=== PATIENT | female | born 2000 | race Caucasian/White ===

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

== ENCOUNTER 2024-02-25 07:59 | Emergency (ER) | payer OTHER, SELFPAY ==
[2024-02-25 08:06] VITALS: BP 120/82; PULSE 110; RESP 20; TEMP 36.3; O2SAT 100
[2024-02-25 08:19] VITALS: BP 118/92; PULSE 91; RESP 16; TEMP 36.4; O2SAT 97
[2024-02-25 08:31] LABS: Basophils Absolute Auto 0.1 K/mm3 (0.0-0.1); Basophils Percent Auto 0.4 % (0.2-1.2); Hematocrit 50.1 % (37.0-47.0); Hemoglobin 16.5 g/dL (12.0-15.0); Immature Granulocyte Absolute 0.04 K/mm3 (0.00-0.031); Immature Granulocyte Percent A 0.3 % (0-0.5); Lymphocytes Absolute Auto 1.39 K/mm3 (0.9-3.2); Lymphocytes Percent Auto 10.9 % (18.3-44.2); Mean Corpuscular HGB Conc 32.9 g/dl (32-36); Mean Corpuscular Hemoglobin 28.6 pg (26-34); Mean Corpuscular Volume 86.8 fl (80-100); Mean Platelet Volume 12.7 fl (7.4-10.4); Monocytes Absolute Auto 1.3 K/mm3 (0.1-0.6); Monocytes Percent Auto 10.3 % (2.6-8.5); Neutrophils Percent Auto 78.1 % (45.5-73.1); Platelet Count Result 243 k/mm3 (150-375); Red Blood Count 5.77 M/mm3 (4.2-5.4); Red Cell Distribution Width 12.6 % (11.5-14.5); White Blood Count 12.7 K/mm3 (4.5-10.0)
[2024-02-25] MEDS: ONDANSETRON INJ 4 MG/2 ML VIAL IV PUSH (08:35)
[2024-02-25] MEDS: SODIUM CHLORIDE 0.9% IV 1,000 ML 999 ML IV CONT ×3 (08:35→10:29)
[2024-02-25 08:46] LABS: Alanine Aminotransferase 47 U/L (6-35); Albumin Level 5.6 g/dL (3.5-5.1); Alkaline Phosphatase 137 U/L (38-126); Anion Gap 19 mmol/L (4-12); Aspartate Amino Transferase 47 U/L (14-36); Bilirubin,Total 0.7 mg/dL (0.2-1.3); Blood Urea Nitrogen 52 mg/dL (7-17); Calcium 10.4 mg/dL (8.4-10.2); Carbon Dioxide 22 mmol/L (22-30); Chloride 97 mmol/L (98-107); Estimated CRCL calculation 31 ml/min; Estimated Glomerular Filt Rate 44; Glucose 98 mg/dL (65-110); Lipase 54 U/L (23-300); Potassium 4.3 mmol/L (3.4-5.0); Sodium 138 mmol/L (137-145)
--- NOTE | 2024-02-25 08:57 | ED.GENADULT ---
HPI - General Adult General Chief complaint: Nausea/Vomiting/Diarrhea Stated complaint: n/v/d Time Seen by Provider: 02/25/24 08:01 History of Present Illness HPI narrative: 23-year-old female presenting to the emergency department for evaluation of persistent nausea and vomiting with diarrhea since Monday. Patient states that she does not frequently have the symptoms. Patient denies any abdominal pain currently but does report some abdominal cramping prior to emesis. Patient states she has been unable to keep down any fluids. Related Data Home Medications Medication Instructions Recorded Confirmed ibuprofen 200 mg tablet 200 mg PO Q6H PRN 02/07/24 02/07/24 Allergies Allergy/AdvReac Type Severity Reaction Status Date / Time latex Allergy Unknown Rash Verified 02/26/24 14:03 Review of Systems Review of Systems: All systems reviewed & are unremarkable except as noted in HPI and below PMFSH Past Medical History Medical History (Updated 02/26/24 @ 15:05 by Michelle Stover) Cholecystectomy planned Pre-employment health screening examination Thickening of wall of gallbladder Family History Family History Father Hypertension Diabetes mellitus Hyperlipidemia Depression Grandparent Hypertension Family history of lung cancer Family history of coronary artery disease Family history of malignant neoplasm of kidney Family history of malignant neoplasm of ovary Diabetes mellitus Mother No problems noted. Sibling No problems noted. Social History Social History Smoking status: Never smoker Alcohol intake: never Substance use: never Lack of Transportation: No Lack of Food: Never True Current Housing: I Have Housing Concerned About Future Housing: No Difficulty Paying Gas/Electric Bills: No Difficulty Paying for Meds: No Currently Unemployed: No Education: High School Diploma/GED Difficulty w/ Childcare or Family Care: No Living arrangements: with family Occupation/Education: occupation Additional occupation/education comments: [employer] Gender identity (if verbalized by the patient): Female Exam Narrative: APPEARANCE: Well appearing, no pain, no distress, well-nourished. HEAD: normocephalic, atraumatic. EYES: PERRLA/EOMI, conjunctivae clear. NOSE: Normal no drainage EARS:TMS clear with good light reflex. THROAT: Pharynx clear, no exudate. NECK: Supple. No adenopathy, no masses. RESPIRATORY: Airway patent, respirations nonlabored. Clear to auscultation bilaterally, no rales, rhonchi, wheezing. CARDIOVASCULAR: Regular rate and rhythm without murmurs rubs or gallops. ABDOMINAL: Soft, nontender, nondistended, normal bowel sounds MUSCULOSKELETAL: Moves all extremities. Strength/ROM intact, No edema, No calf tenderness. NEURO: Alert. Cranial nerves II through XII intact. grossly intact SKIN: Warm, dry. Normal Color Course Vital Signs Vital signs: Vital Signs Temperature 97.3 F L 02/25/24 08:06 Pulse Rate 110 H 02/25/24 08:06 Respiratory Rate 20 02/25/24 08:06 Blood Pressure 120/82 02/25/24 08:06 Pulse Oximetry 100 02/25/24 08:06 Temperature 97.6 F 02/25/24 08:19 Pulse Rate 87 02/25/24 12:07 Respiratory Rate 17 02/25/24 12:07 Blood Pressure 104/69 02/25/24 12:07 Pulse Oximetry 100 02/25/24 12:07 Oxygen Delivery Room Air 02/25/24 08:19 Medical Decision Making MDM Narrative Medical decision making narrative: 23-year-old female presenting to the emergency department for evaluation of persistent nausea vomiting and diarrhea. Patient is afebrile but does have a leukocytosis of 12.7 and a hemoglobin of 16.5, thought to be due to hemoconcentration. Patient also has a significantly elevated BUN and creatinine compared to her baseline. Mild elevation AST and ALT alk-phos with no elevation in lipase. Patient abd
[2024-02-25 09:01] LABS: Appearance Urine Cloudy (Clear); Bacteria Urine 1+ /hpf; Bilirubin Urine Negative (Negative); Blood Urine 1+ (Negative); Color Urine Yellow (Yellow); Glucose Urine UA Negative (Negative); Granular Casts Urine Present /lpf; Hyaline Casts Urine Present /lpf; Ketones Urine 1+ mg/dL (Negative); Leukocyte Esterase Ur Negative LEU/UL (Negative); Mucus Urine Present /lpf; Nitrate Urine Negative (Negative); Non Pathogenic Casts >20; Protein Urine 2+ mg/dL (Negative); Specific Grav Ur 1.025 (1.001-1.035); Squamous Epithelial Cell Urine Moderate /hpf (Few); WBC Urine 0-5 /hpf (0-3)
[2024-02-25 09:02] LABS: Add Urine Microscopic? YES
[2024-02-25] MEDS: PANTOPRAZOLE SODIUM IV 40 MG VIAL IV PUSH (09:26)
[2024-02-25 09:30] LABS: Lactic Acid Reflex 1.9 mmol/L (0.7-2.0)
[2024-02-25 09:36] VITALS: BP 105/71; PULSE 98; RESP 16; O2SAT 100
[2024-02-25 11:11] LABS: Anion Gap 9 mmol/L (4-12); Blood Urea Nitrogen 40 mg/dL (7-17); Calcium 7.2 mg/dL (8.4-10.2); Carbon Dioxide 18 mmol/L (22-30); Chloride 108 mmol/L (98-107); Estimated CRCL calculation 50 ml/min; Estimated Glomerular Filt Rate > 60; Glucose 75 mg/dL (65-110); Sodium 135 mmol/L (137-145)
[2024-02-25 12:07] VITALS: BP 104/69; PULSE 87; RESP 17; O2SAT 100
== END 2024-02-25 12:23 | disposition home or self-care (01) ==
PROVIDERS: Emergency Provider Emergency Medicine; PCP Family Medicine
DX: N17.9 Acute kidney failure, unspecified (principal); R11.2 Nausea with vomiting, unspecified; E86.0 Dehydration
CPT/HCPCS: 36415; 80048; 80053; 81001; 83605; 83690; 85025; 96361; 96374; 96375; 99284; C9113; J2405; J7030

== ENCOUNTER 2024-07-26 09:01 | Outpatient (CLI) | payer OTHER, SELFPAY ==
[2024-07-26 09:31] LABS: Basophils Percent Auto 0.5 % (0.2-1.2); Eosinophils Absolute Auto 0.2 K/mm3 (0-0.3); Eosinophils Percent Auto 2.7 % (0-4.4); Hematocrit 38.1 % (37.0-47.0); Hemoglobin 12.7 g/dL (12.0-15.0); Immature Granulocyte Absolute 0.03 K/mm3 (0.00-0.031); Immature Granulocyte Percent A 0.4 % (0-0.5); Lymphocytes Absolute Auto 2.06 K/mm3 (0.9-3.2); Mean Corpuscular HGB Conc 33.3 g/dl (32-36); Mean Corpuscular Hemoglobin 30.1 pg (26-34); Mean Corpuscular Volume 90.3 fl (80-100); Mean Platelet Volume 12.6 fl (7.4-10.4); Monocytes Absolute Auto 0.5 K/mm3 (0.1-0.6); Monocytes Percent Auto 5.6 % (2.6-8.5); Neutrophils Absolute Auto 5.4 K/mm3 (1.3-6.7); Neutrophils Percent Auto 65.8 % (45.5-73.1); Platelet Count Result 195 k/mm3 (150-375); Red Blood Count 4.22 M/mm3 (4.2-5.4); Red Cell Distribution Width 12.8 % (11.5-14.5); White Blood Count 8.3 K/mm3 (4.5-10.0)
[2024-07-26 09:59] LABS: Alanine Aminotransferase 14 U/L (6-35); Albumin Level 4.6 g/dL (3.5-5.1); Alkaline Phosphatase 86 U/L (38-126); Anion Gap 10 mmol/L (4-12); Aspartate Amino Transferase 23 U/L (14-36); Bilirubin,Total 0.6 mg/dL (0.2-1.3); Blood Urea Nitrogen 9 mg/dL (7-17); Calcium 9.4 mg/dL (8.4-10.2); Carbon Dioxide 25 mmol/L (22-30); Chloride 101 mmol/L (98-107); Cholesterol 196 mg/dL (0-200); Estimated Glomerular Filt Rate > 60; Glucose 81 mg/dL (65-110); HDL Direct 59 mg/dL; Potassium 3.9 mmol/L (3.4-5.0); Sodium 136 mmol/L (137-145); Triglycerides 122 mg/dL (<150)
[2024-07-26 10:10] LABS: LDL Cholesterol Direct 115 mg/dL
[2024-07-26 10:30] LABS: Thyroid Stimulating Hormone 0.971 uIU/mL (0.465-4.680)
[2024-07-26 10:36] LABS: HIV 1/2 Ab P24 Ag Result Negative (Negative)
[2024-07-26 10:51] LABS: Rapid Plasma Reagin Non-Reactive (NonReactive)
[2024-07-26 11:11] LABS: Hepatitis B Surface Antigen Negative (Negative)
[2024-07-30 14:38] LABS: CMV IgG Antibody <0.60 U/mL; Varicella IgG Antibody 7.51 S/CO
== END 2024-07-26 09:02 | disposition home or self-care (01) ==
PROVIDERS: PCP Family Medicine; Referring Provider Nurse Practitioner Family; Visit Provider Student in an Organized Health Care Education/Training Program
DX: N94.89 Other specified conditions associated with female genital organs and menstrual cycle (principal); R74.8 Abnormal levels of other serum enzymes; Z13.29 Encounter for screening for other suspected endocrine disorder
CPT/HCPCS: 36415; 80053; 80061; 84443; 84702; 85025; 86592; 86644; 86703; 86747; 86762; 86787; 86850; 86900; 86901; 87086; 87088; 87340; G0432

== ENCOUNTER 2024-10-08 19:11 | Observation (INO) | payer OTHER, SELFPAY ==
[2024-10-08] VITALS (21 sets, daily range): BP systolic 108–121; BP diastolic 60–68; PULSE 88–119; TEMP 36.2; O2SAT 100; BMI 23.6
--- NOTE | 2024-10-08 19:44 | OBADM ---
This patient, Fina Steele, admitted to the OB room OB Post [facility] for observation. Patient/family oriented to hospital policies and general routines including ID bracelet, bed and alarms, visiting hours, pain management, procedures, bathroom and other care routines, personal items, smoking policy, room service/diet, and visiting hours. Patient/Family are encouraged to report perceived risks to care and to ask questions if they do not understand what they are told or what they should do.
[2024-10-08 19:55] LABS: Add Urine Microscopic? YES; Appearance Urine Clear (Clear); Bacteria Urine None Seen /hpf; Bilirubin Urine Negative (Negative); Blood Urine Negative (Negative); Color Urine Yellow (Yellow); Glucose Urine UA Negative (Negative); Ketones Urine Negative (Negative); Leukocyte Esterase Ur Trace LEU/UL (Negative); Nitrate Urine Negative (Negative); Non Pathogenic Casts 0-2; Protein Urine Negative (Negative); RBC Urine 0-2 /hpf (0-2); Specific Grav Ur 1.005 (1.001-1.035); Squamous Epithelial Cell Urine Few /hpf (Few); Urobilinogen Urine 0.2 mg/dL (<2.0); WBC Urine 0-5 /hpf (0-3); pH Urine 6.5 (5.0-9.0)
[2024-10-08] MEDS: TERBUTALINE SULFATE 1 MG/ML VIAL 0.25 MG SUB-Q (20:15)
--- NOTE | 2024-10-09 08:19 | PM.OBTRLD ---
OB - Triage/Final Diagnosis Visit Information Reason for evaluation: threatened labor Comments/Additional reasons for admission: I have assessed the risk for this patient, Fina Steele, and determined that she would benefit from observation care. Evaluation Laboratory results: Laboratory Tests 10/08/24 19:40 Urine Color Yellow Urine Appearance Clear Urine pH 6.5 Ur Specific [place] 1.005 Urine Protein Negative Urine Glucose (UA) Negative Urine Ketones Negative Ur Blood (Man) Negative Urine Nitrate Negative Urine Bilirubin Negative Urine Urobilinogen 0.2 Leukocyte Esterase Rfl Trace H Urine RBC 0-2 Urine WBC 0-5 Ur Squamous Epith Cells Few Urine Bacteria None seen Urine Casts 0-2 Vital signs: Vital Signs - 24 hr 10/08/24 19:30 10/08/24 20:00 10/08/24 20:17 Temperature Pulse Rate 100 94 Blood Pressure 121/65 111/68 Pulse Oximetry 100 10/08/24 20:22 10/08/24 20:27 10/08/24 20:30 Temperature Pulse Rate 110 H Blood Pressure 108/61 Pulse Oximetry 100 100 10/08/24 20:32 10/08/24 20:37 10/08/24 20:42 Temperature Pulse Rate Blood Pressure Pulse Oximetry 100 100 100 10/08/24 20:47 10/08/24 20:52 10/08/24 20:57 Temperature Pulse Rate Blood Pressure Pulse Oximetry 100 100 100 10/08/24 21:00 10/08/24 21:02 10/08/24 21:07 Temperature Pulse Rate 101 H Blood Pressure 115/60 Pulse Oximetry 100 100 10/08/24 21:19 10/08/24 21:24 10/08/24 21:29 Temperature 97.1 F L Pulse Rate Blood Pressure Pulse Oximetry 100 100 100 10/08/24 21:34 10/08/24 21:39 10/08/24 21:44 Temperature Pulse Rate Blood Pressure Pulse Oximetry 100 100 100
== END 2024-10-08 22:00 | disposition home or self-care (01) ==
PROVIDERS: Admitting Provider Obstetrics & Gynecology; PCP Family Medicine; Visit Provider Obstetrics & Gynecology
DX: O47.02 False labor before 37 completed weeks of gestation, second trimester (principal); Z3A.23 23 weeks gestation of pregnancy
CPT/HCPCS: 81001; 96372; G0378; G0379; J3105

== ENCOUNTER 2024-11-30 11:15 | Outpatient (CLI) | payer MEDICAID, SELFPAY ==
--- OUTSIDE RECORDS SUMMARY | 2024-11-30 11:18 | XMS_ITS | Referral Summary ---
Author Organization [facility] Address [address] [place] [address] Care Team Providers Care Floral Specialist Name Role Phone Lowell Patel MD Primary Care Provider [phone] Lowell Patel MD Unavailable [phone] Source Comments [facility],non-owned Affiliates and Associated Physician Practices is amultiple site organization consisting of ambulatory clinics and hospital sitesin [place], [place], [place] and [place]. This disclosure is being madepursuant to the Care Everywhere program and may not contain all information available regarding this patient. Last updated 18.[facility] Allergies Active Allergy Reactions Criticality Noted Date Comments Adhesive Sensitivity Rash Low 01/03/2012 bandaids Medications * Be aware that medications may not be up to date on this document. Alwaysverify current medications with the patient. Medication Sig Dispensed Refills Start Date End Date Status amoxicillin-clavula elisa (AUGMENTIN) 500-125 MG tabletIndications:S kin and Skin Structure Infection Take 1 tablet by mouth 2 times daily with morning and evening meal Reasons: Infection of the Skin and/or Skin Structures 14 tablet 10/27/2020 Active Active Problems Problem Noted Date Diagnosed Date Incisional infection 11/11/2020 Assessment & Plan (11/11/2020 4:48 PM BEDSPRING ASSEMBLER): Fina was seen via telemedicine today in follow up of her umbilical wound infection s/p cholecystectomy by Dr Conrad. She has completed her antibiotics and she has no pain, redness, or drainage from the site anymore. Visualization of the wound the skin edges are approximated without any redness. Will follow up prn 15 minutes spent with patient excluding procedure time, of which more than 50% was spent on education, care coordination and patient counseling. Cholecystitis 10/28/2020 Assessment & Plan (10/28/2020 2:38 PM BEDSPRING ASSEMBLER): Fina is here today for a postoperative follow up from her cholecystectomy Operative Note: ??Date: October 01, 2020?? Preoperative Diagnosis: Acute cholecystitis?? Post Operative Diagnosis: Acute on chronic cholecystitis?? Procedure Performed: Laparoscopic cholecystectomy Pathology reviewed with pt and Mom. She has done very well since surgery stating all of her pain has dissipated. Her incisions are clean dry and intact. Abd is soft with out any discomfort. May return to all regular activities 15 minutes spent with patient excluding procedure time, of which more than 50% was spent on education, care coordination and patient counseling. Abnormal liver function tests 09/30/2020 Social History Tobacco Use Types Packs/Day Years Used Date Smoking Tobacco: Never Smokeless Tobacco: Never Alcohol Use Standard Drinks/Week Comments Never 0 (1 standard drink = 0.6 oz pur e alcohol) AUDIT-C Answer Date Recorded Q1: How often do you have a drink containing alc ohol? Never 09/30/2020 Average Number of Drinks Not on file 020 Frequency of Binge Drinking Not on file 11/2019 Sex and Gender Information Value Date Recorded Sex Assigned at Not on file Gender Identity Not on file Sexual Orientation Not on file Last Filed Vital Signs Vital Sign Reading Time Taken Comments Blood Pressure 108/61 10/02/2020 8:11 AM BEDSPRING ASSEMBLER Pulse 70 10/02/2020 8:11 AM BEDSPRING ASSEMBLER Temperature 36.1 ??C (97 ??F) 10/02/2020 8:11 AM BEDSPRING ASSEMBLER Respiratory Rate 16 10/02/2020 8:11 AM BEDSPRING ASSEMBLER Oxygen Saturation 98% 10/02/2020 8:11 AM BEDSPRING ASSEMBLER Inhaled Oxygen Concentration 100% 10/01/2020 6 :15 PM BEDSPRING ASSEMBLER Weight 41.1 kg (90 lb 9.7 oz) 11/02/2020 12:53 P M BEDSPRING ASSEMBLER Height 149.3 cm (4' 10.78 ) 09/30/2020 10:40 PM BEDSPRING ASSEMBLER Body Mass Index 18.44 09/30/2020 10:40 PM BEDSPRING ASSEMBLER Functional Status Functional Status Response Date of Assess ment Is person deaf or have serious hearing difficult y? No 09/30/2020 Is person blind or have serious difficulty seein g? No 09/30/2020 Does person have serious dif ficulty walking/climbing stairs? No 09/30/2020 Does person have difficulty dressing/bathing? No 09/30/2020 Does person have difficulty doing errands alone? No 09/30/2020 Cognitive Status Response Date of Assessm ent Does person have difficulty concentrating/remembering/making decisions? No 09/30/2020 Plan of Treatment Not on file Advance Directives * Full Code (Latest Code Status on File) Date Activated Date Inactivated Comments 09/30/2020 9:48 PM 10/02/2020 11:12 AM Care Teams Floral Specialist Relationship Specialty Start Date End Date Lowell Patel MD [address] [place] [address] PCP - General 10/14/20 Lowell Patel MD [address] [place] [address] 10/14/20
--- OUTSIDE RECORDS SUMMARY | 2024-11-30 11:18 | XMS_ITS | Clinical Summary ---
Author Organization [facility] Address [address] [place] [address] Care Team Providers Care Finishing Supervisor Plastic Sheets Name Role Phone Lowell Patel MD Primary Care Provider [phone] Lowell Patel MD Unavailable [phone] Source Comments [facility],non-owned Affiliates and Associated Physician Practices is amultiple site organization consisting of ambulatory clinics and hospital sitesin [place], [place], [place] and [place]. This disclosure is being madepursuant to the Care Everywhere program and may not contain all information available regarding this patient. Last updated 18.[facility] Allergies Active Allergy Reactions Criticality Noted [...] 11/11/2020 Assessment & Plan (11/11/2020 4:48 PM SR. MEDIA MANAGER): Fina was seen via telemedicine today in [...] 10/28/2020 Assessment & Plan (10/28/2020 2:38 PM SR. MEDIA MANAGER): Fina is here today for a postoperative [...] Comments Blood Pressure 108/61 10/02/2020 8:11 AM SR. MEDIA MANAGER Pulse 70 10/02/2020 8:11 AM SR. MEDIA MANAGER Temperature 36.1 ??C (97 ??F) 10/02/2020 8:11 AM SR. MEDIA MANAGER Respiratory Rate 16 10/02/2020 8:11 AM SR. MEDIA MANAGER Oxygen Saturation 98% 10/02/2020 8:11 AM SR. MEDIA MANAGER Inhaled Oxygen Concentration 100% 10/01/2020 6 :15 PM SR. MEDIA MANAGER Weight 41.1 kg (90 lb 9.7 oz) 11/02/2020 12:53 P M SR. MEDIA MANAGER Height 149.3 cm (4' 10.78 ) 09/30/2020 10:40 PM SR. MEDIA MANAGER Body Mass Index 18.44 09/30/2020 10:40 PM SR. MEDIA MANAGER Plan of Treatment Health Maintenance Due Date Last Done Comments PAP SMEAR 2002 HIV SCREENING 2017 HPV VACCINE (1 - 3-dose series) 2017 CHLAMYDIA/GONORRHEA SCREENING 2018 MENINGOCOCCAL (Group B) VACC INE (1 of 2 - Standard) 2018 HEPATITIS C SCREENING 08/09/2020 DTAP/TDAP/TD VACCINES (1 - Tdap) 2021 HEPATITIS B VACCINE (1 of 3 - 19+ 3-dose series) 2021 COVID-19 VACCINE (1 - 2023-2 5 season) 2024 INFLUENZA VACCINE (#1) 2024 DEPRESSION SCREENING 10/30/2024 ZOSTER VACCINE (1 of 2) 2052 HIB VACCINE Aged Out No longer eligi ble based on patient's age to complete this topic MENINGOCOCCAL VACCINE Aged Out No ava león eligible based on patient's age to complete this topic PNEUMOCOCCAL VACCINE Aged Out No long er eligible based on patient's age to complete this topic Advance Directives * Full Code (Latest Code Status on File) Date Activated Date Inactivated Comments 09/30/2020 9:48 PM 10/02/2020 11:12 AM Care Teams Finishing Supervisor Plastic Sheets Relationship Specialty Start Date End Date Lowell Patel MD [address] [place] [id number] PCP - General 10/14/20 Lowell Patel MD [address] [place] [id number] 10/14/20
--- OUTSIDE RECORDS SUMMARY | 2024-11-30 11:18 | XMS_ITS | Patient Health Summary ---
Author Organization [facility] Address [address] [place] [address] Care Team Providers Care [employer] Flake Miller Name Role Phone Lowell Patel MD Primary Care Provider [phone] Lowell Patel MD Unavailable [phone] Note from [facility] [place],non-owned Affiliates and Associated Physician Practices is amultiple site organization consisting of ambulatory clinics and hospital sitesin [place], [place], [place] and [place]. This disclosure is being madepursuant to the Care Everywhere program and may not contain all information available regarding this patient. Last updated 18.[facility] Allergies * Adhesive Sensitivity(Rash) -Low Criticality Medications * Be aware that medications may not be up to date on this document. Alwaysverify current medications with the patient. * amoxicillin-clavulanate (AUGMENTIN) 500-125 MG tablet(Started 10/27/2020) Take 1 tablet by mouth 2 times daily with morning and evening meal Reasons: Infection of the Skin and/or Skin Structures Active Problems Problem Noted Date Diagnosed Date Incisional infection 11/11/2020 Cholecystitis 10/28/2020 Abnormal liver function tests 09/30/2020 Social History [...] Comments Blood Pressure 108/61 10/02/2020 8:11 AM CARE MANAGER CNA Pulse 70 10/02/2020 8:11 AM CARE MANAGER CNA Temperature 36.1 ??C (97 ??F) 10/02/2020 8:11 AM CARE MANAGER CNA Respiratory Rate 16 10/02/2020 8:11 AM CARE MANAGER CNA Oxygen Saturation 98% 10/02/2020 8:11 AM CARE MANAGER CNA Inhaled Oxygen Concentration 100% 10/01/2020 6 :15 PM CARE MANAGER CNA Weight 41.1 kg (90 lb 9.7 oz) 11/02/2020 12:53 P M CARE MANAGER CNA Height 149.3 cm (4' 10.78 ) 09/30/2020 10:40 PM CARE MANAGER CNA Body Mass Index 18.44 09/30/2020 10:40 PM CARE MANAGER CNA Procedures * PATHOLOGY TISSUE EXAM (STL)(Performed 10/01/2020) Performed for Elevated liver enzymes * ENDOTRACHEAL TUBE NOTE(Performed 10/01/2020) * ID LAP,CHOLECYSTECTOMY(Performed 10/01/2020) * US ABDOMEN LIMITED(Performed 10/01/2020) Performed for Abnormal liver function tests * DIFFERENTIAL MANUAL(Performed 10/01/2020) * HEPATIC FUNCTION PANEL(Performed 10/01/2020) * PHOSPHORUS BLOOD(Performed 10/01/2020) * MAGNESIUM BLOOD(Performed 10/01/2020) * BASIC METABOLIC PANEL (CALCIUM TOTAL)(Performed 10/01/2020) * CBC W AUTO DIFFERENTIAL(Performed 10/01/2020) * HCG URINE QUALITATIVE(Performed 09/30/2020) * HCG BETA BLOOD QUANTITATIVE(Performed 09/30/2020) * SARS-COV-2 (COVID-19) IN HOUSE(Performed 09/30/2020) * CT ABDOMEN W CONTRAST(Performed 09/30/2020) Performed for Abnormal liver function tests * LIPASE BLOOD(Performed 09/30/2020) * DIFFERENTIAL MANUAL(Performed 09/30/2020) * CHOLESTEROL BLOOD(Performed 09/30/2020) * TRIGLYCERIDES BLOOD(Performed 09/30/2020) * HEPATIC FUNCTION PANEL(Performed 09/30/2020) * BASIC METABOLIC PANEL (CALCIUM TOTAL)(Performed 09/30/2020) * CBC W AUTO DIFFERENTIAL(Performed 09/30/2020) * US ABDOMEN COMPLETE(Performed 02/06/2012) Performed for Abdominal pain, generalized * URINALYSIS REFLEX TO MICROSCOPIC NO CULTURE(Performed 01/03/2012) * DIFFERENTIAL MANUAL(Performed 01/03/2012) * COMPREHENSIVE METABOLIC PANEL(Performed 01/03/2012) * CBC W AUTO DIFFERENTIAL(Performed 01/03/2012) Results * PATHOLOGY TISSUE EXAM (STL) (10/01/2020 4:56 PM CARE MANAGER CNA) Case Report Surgical Pathology Report ? Case: [id number] ? Authorizing Provider: ??Kelsey Hernandez MD ?Collected: ? 10/01/2020 04:56 PM ? Ordering Location: ? [facility] ? Received: ?10/02/2020 07:33 AM ? Pathologist: ? Lupe Villareal MD ? Specimen: ?Gallbladder ? 10/08/2020 11:23 AM [facility] Final Diagnosis Gallbladder, cholecystectomy: - Chronic cholecystitis. 10/08/2020 11:23 AM [facility] Clinical History The patient is an 20-year-old young woman with elevated liver enzymes who underwent laparoscopic cholecystectomy. 10/08/2020 11:23 AM [facility] Gross Description Submitted fixed in formalin in one container for gross and microscopic examination, labeled with the patient's name, Fina Steele, and gallbladder, is a 5.7 x 2 x 1 cm collapsed gallbladder with open cystic duct measuring 0.4 cm in diameter. The serosal surface is pink-mckee, smooth, and glistening. The hepatic bed is rough. The gallbladder is empty. The mucosal surface has a variegated red-mckee to yellow-mckee, velvety appearance. The gallbladder wall thickness is 0.3 cm. Framing Consultant sections from the gallbladder and cystic duct are submitted in cassette A1. (CT/ns) 10/08/2020 11:23 AM [facility] Microscopic Description 1 H&E. Sections show thickened, edematous gallbladder mucosa with increased chronic inflammatory infiltrate in the lamina propria, some lymphoid aggregates containing large activated lymphocytes, and rare Rokitansky-Aschoff sinuses. The case was discussed at the Intradepartmental Consensus Conference on 10/08/2020. 10/08/2020 11:23 AM [facility] Disclaimer The performance characteristics of all immunohistochemical and indirect immunofluorescence stains (if any) cited in this report were determined by the [facility] in compliance with Clinical Laboratory Improvement Amendments of 1988 (CLIA'88) regulations. Some of these tests rely on the use of analyte-specific reagents and are subject to specific labeling requirements by the U.S. Food and Drug Administration (FDA). Such tests were developed by the [facility] and have not been cleared or approved by the FDA. The FDA has determined that such clearance or approval is not necessary. These tests are used for clinical purposes and should not be regarded as investigational or for research. This case has been personally reviewed and interpreted by the attending (teaching) pathologist. 10/08/2020 11:23 AM [facility] Embedded Images 10/08/2020 11:23 AM [facility] Pathology/Cytolo gy ENTIRE GALLBLADDER / Unknown 10/01/2020 4:56 PM CARE MANAGER CNA 10/02/2020 7:33 AM CARE MANAGER CNA Kelsey Hernandez MD LAB - PATHOLOGY/CYTO LOGY ORDERABLES [facility] [place] [address] * ETT LINE PERFORMABLE (10/01/2020 4:03 PM CARE MANAGER CNA) Narrative Scotty Saini Anes Asst - 10/01/2020 4:03 PM CARE MANAGER CNA Scotty Saini Anes Asst ? 10/01/2020 ??4:04 PM Endotracheal Tube Placement: ? Patient Location: OR. Intubation Event Date/Time: ??10/01/2020 3:51 PM Procedure: intubation (99848). Procedure Section: ?? Sedation: under general anesthesia. Indications for Airway Management: ??anesthesia Induction: standard IV Patient Position: ??supine Mask Ventilation: easy. Blade Type: Frank Blade Size: 3 Laryngoscopy View: grade 1 (full cords) Tube: endotracheal tube Placement: oral Tube type: cuff - inflated Tube Size (MM): 6 Depth of Insertion (CM): 18 Measured From: teeth Cuff volume (mL): ??3 Cuff inflation pressure (CM H20): ??20 Cuff Inflated With: air Placement Verified By: direct visualization, bilateral breath sounds, chest auscultation and CO2 monitor Tube secured with: ??adhesive tape. Dentition unchanged? ??Yes Difficult Airway? ??No. Procedure Start Time: 10/01/2020 3:51 PM. Staff Section ?? Anesthesia Provider: Scotty Saini Anes Asst, Performed the procedure Portillo Pugh MD GENERAL ANESTHE DIOGO ORDERABLES * US ABDOMEN LIMITED (10/01/2020 11:06 AM CARE MANAGER CNA) Anatomical Region Laterality Modality Abdomen Ultrasound 10/01/2020 12:1 0 PM CARE MANAGER CNA Impressions 10/01/2020 12:18 PM CARE MANAGER CNA Gallbladder wall thickening without evidence of cholelithiasis. Differential considerations include acute or chronic cholecystitis and underlying hepatic disease. *Reading Radiologist: Winnie Lobo on 10/01/2020 at 12:18 PM Narrative 10/01/2020 12:18 PM CARE MANAGER CNA INDICATION: 20 year old female with RUQ pain COMPARISON: 10/01/2020 TECHNIQUE: Brown scale and color Doppler ultrasound imaging of the abdomen per department protocol. FINDINGS: Liver: The liver is normal in size and echotexture. No intrahepatic biliary ductal dilation is seen. Gallbladder: There is diffuse gallbladder wall thickening. No shadowing gallstones are identified. No pericholecystic fluid. There is no dilation of the common bile duct. Pancreas: The echotexture is normal. No ductal dilation or peripancreatic fluid is seen. Right kidney: Grossly normal in appearance. Other: No fluid or mass is present. Procedure Note Winnie Lobo MD - 10/01/2020 INDICATION: 20 year old female with RUQ pain COMPARISON: 10/01/2020 TECHNIQUE: Brown scale and color Doppler ultrasound imaging of the abdomen per department protocol. FINDINGS: Liver: The liver is normal in size and echotexture. No intrahepatic biliary ductal dilation is seen. Gallbladder: There is diffuse gallbladder wall thickening. No shadowing gallstones are identified. No pericholecystic fluid. There is no dilation of the common bile duct. Pancreas: The echotexture is normal. No ductal dilation or peripancreatic fluid is seen. Right kidney: Grossly normal in appearance. Other: No fluid or mass is present. IMPRESSION Gallbladder wall thickening without evidence of cholelithiasis. Differential considerations include acute or chronic cholecystitis and underlying hepatic disease. *Reading Radiologist: Winnie Lobo on 10/01/2020 at 12:18 PM Adriel Polanco MD US ORDERABLES * (ABNORMAL) DIFFERENTIAL MANUAL (10/01/2020 4:22 AM CARE MANAGER CNA) Only the most recent of3 resultswithin the time period is included. WBC Auto 18.1 x10E9/L 10/01/2020 5:04 AM [facility] WBC Corrected 10/01/2020 5:04 AM [facility] nRBC 10/01/2020 5:04 AM [facility] Neutrophil % Manual 9(L) 31 - 78 % 10/01/2020 5:04 AM [facility] Lymphocytes % Manual 70(H) 13 - 54 % 10/01/2020 5:04 AM [facility] Monocytes % Manual 11 4 - 13 % 10/01/2020 5:04 AM [facility] Atypical Lymphocyte % Manual 4(H) <=0 % 10/01/2020 5:04 AM [facility] Band % Manual 6 % 10/01/2020 5:04 AM [facility] Cells Counted 100 # cells 10/01/2020 5:04 AM [facility] Platelet Estimation Adequate platelets Normal, Adequate platelets 10/01/2020 5:04 AM [facility] WBC Morph Normal 10/01/2020 5:04 AM [facility] Anisocytosis Occasional(A ) None 10/01/2020 5:04 AM [facility] Poikilocytosis Occasional(A ) None 10/01/2020 5:04 AM [facility] Blood BLOOD SPECIMEN / Unknown Venipuncture / Unknown 10/01/2020 4:22 AM CARE MANAGER CNA 10/01/2020 4:30 AM [facility] Reece Delaney MD LAB - HEMATOLOGY ORD ERABLES Performing Organization Address City/State/[facility] Co de Phone Number [facility] [address] [place] [phone] * (ABNORMAL) CBC W AUTO DIFFERENTIAL (10/01/2020 4:22 AM [facility]) Only the most recent of3 resultswithin the time period is included. WBC 18.1(H) 4.5 - 11.0 x10E9/L 10/01/2020 4:37 AM [facility] WBC Corrected 10/01/2020 4:37 AM [facility] RBC 3.53(L) 4.10 - 5.10 x10E12/L 10/01/2020 4:37 AM [facility] Hemoglobin 10.2(L) 12.0 - 16.0 gm/dL 10/01/2020 4:37 AM [facility] Hematocrit 30.8(L) 36.0 - 47.0 % 10/01/2020 4:37 AM [facility] MCV 87.3 78.0 - 98.0 fl 10/01/2020 4:37 AM [facility] MCH 28.9 25.0 - 35.0 pg 10/01/2020 4:37 AM [facility] MCHC 33.1 31.0 - 37.0 gm/dL 10/01/2020 4:37 AM [facility] Platelet Count 144 100 - 400 x10E9/L 10/01/2020 4:37 AM [facility] RDW-CV 12.9 11.5 - 14.0 % 10/01/2020 4:37 AM [facility] MPV 12.9(H) 6.0 - 9.5 fl 10/01/2020 4:37 AM [facility] nRBC Auto 0 /100 WBC 10/01/2020 4:37 AM [facility] Hematology Reflex Status Manual Diff to follow 10/01/2020 4:37 AM [facility] Blood BLOOD SPECIMEN / Unknown Venipuncture / Unknown 10/01/2020 4:22 AM CARE MANAGER CNA 10/01/2020 4:30 AM [facility] Reece Delaney MD LAB - HEMATOLOGY ORD ERABLES [facility] [address] [place], [place] [id number] * (ABNORMAL) BASIC METABOLIC PANEL (CALCIUM TOTAL) (10/01/2020 4:22 AM [facility]) Only the most recent of2 resultswithin the time period is included. Glucose 84 70 - 105 mg/dL 10/01/2020 4:51 AM [facility] Sodium 141 136 - 145 mmol/L 10/01/2020 4:51 AM [facility] Potassium 4.0 3.5 - 5.1 mmol/L 10/01/2020 4:51 AM [facility] Chloride 106 98 - 107 mmol/L 10/01/2020 4:51 AM [facility] CO2 23 20 - 28 mmol/L 10/01/2020 4:51 AM [facility] Calcium 8.05(L) 9.08 - 10.48 mg/dL 10/01/2020 4:51 AM [facility] Anion Gap 12 5 - 20 mmol/L 10/01/2020 4:51 AM [facility] BUN 9.9 5.3 - 18.7 mg/dL 10/01/2020 4:51 AM [facility] Creatinine 0.61 0.61 - 1.07 mg/dL 10/01/2020 4:51 AM [facility] eGFR by MDRD >60 >60 mL/min/1.7 3m2 10/01/2020 4:51 AM [facility] eGFR by MDRD >60 >60 mL/min/1.7 3m2 10/01/2020 4:51 AM [facility] Blood BLOOD SPECIMEN / Unknown Venipuncture / Unknown 10/01/2020 4:22 AM CARE MANAGER CNA 10/01/2020 4:30 AM CARE MANAGER CNA Reece Delaney MD LAB - CHEMISTRY AMANDEEP RAO Performing Organization Address [facility] Co de Phone Number [facility] [address] [place] [phone] * PHOSPHORUS BLOOD (10/01/2020 4:22 AM CARE MANAGER CNA) Pathologist [facility] Phosphorus 4.13 2.88 - 5.08 mg/dL 10/01/2020 4:52 AM [facility] Blood BLOOD SPECIMEN / Unknown Venipuncture / Unknown 10/01/2020 4:22 AM CARE MANAGER CNA 10/01/2020 4:30 AM CARE MANAGER CNA Reece Delaney MD LAB - CHEMISTRY AMANDEEP RAO Performing Organization Address [facility] de Phone Number [facility] [address] [place] [phone] * (ABNORMAL) HEPATIC FUNCTION PANEL (10/01/2020 4:22 AM CARE MANAGER CNA) Only the most recent of2 resultswithin the time period is included. Alkaline Phosphatase 365(H) 39 - 139 U/L 10/01/2020 4:52 AM [facility] ALT 93(H) 8 - 65 U/L 10/01/2020 4:52 AM [facility] AST 75(H) 5 - 34 U/L 10/01/2020 4:52 AM [facility] Comment:Attention clinician: ??Reference Range change. Protein Total 6.0(L) 6.3 - 8.2 gm/dL 10/01/2020 4:52 AM [facility] Albumin 2.8(L) 3.3 - 4.9 gm/dL 10/01/2020 4:52 AM [facility] Bilirubin Total 0.8 0.3 - 1.2 mg/dL 10/01/2020 4:52 AM [facility] Bilirubin Direct 0.60 0.11 - 0.64 mg/dL 10/01/2020 4:52 AM [facility] Blood BLOOD SPECIMEN / Unknown Venipuncture / Unknown 10/01/2020 4:22 AM CARE MANAGER CNA 10/01/2020 4:30 AM CARE MANAGER CNA Reece Delaney MD LAB - CHEMISTRY AMANDEEP RAO Performing Organization Address City/[facility]/ZIP Co de Phone Number [facility] [address] [place] [phone] * MAGNESIUM BLOOD (10/01/2020 4:22 AM CARE MANAGER CNA) [facility] Magnesium 2.2 1.7 - 2.3 mg/dL 10/01/2020 4:52 AM [facility] Blood BLOOD SPECIMEN / Unknown Venipuncture / Unknown 10/01/2020 4:22 AM CARE MANAGER CNA 10/01/2020 4:30 AM CARE MANAGER CNA Reece Delaney MD LAB - CHEMISTRY AMANDEEP RAO Performing Organization Address [facility] de Phone Number [facility] [address] [place] [phone] * HCG URINE QUALITATIVE (09/30/2020 11:16 PM CARE MANAGER CNA) [facility] hCG Qualitative Urine Negative Negative 09/30/2020 11:33 PM CARE MANAGER CNA [facility] Urine URINE / Unknown Collection / Unknown 09/30/2020 11:16 PM CARE MANAGER CNA 09/30/2020 11:23 PM CARE MANAGER CNA Reece Delaney MD LAB - URINALYSIS ORD ERALUZ ELENA Performing Organization Address [facility] de Phone Number [facility] [address] [place] [phone] * HCG BETA BLOOD QUANTITATIVE (09/30/2020 10:59 PM CARE MANAGER CNA) [facility] hCG Quantitative <1.20 mIU/mL 10/01/20 20 12:56 AM CARE MANAGER CNA [facility] Blood BLOOD SPECIMEN / Unknown Venipuncture / Unknown 09/30/2020 10:59 PM CARE MANAGER CNA 09/30/2020 11:23 PM CARE MANAGER CNA [facility] - 10/01/2020 12:56 AM CARE MANAGER CNA ? hCG Reference Range, mIU/mL: ? Males ? 0-2.0 ? Non Females ? 0-6.0 ? Perimenopausal Females ages 41-55* ?0-7.7 ? Postmenopausal Females age >55* ? 0-14 ? Females, Weeks after Last Menstrual Period ?0.2-1 week ? 5-50 ?1 - 2 weeks ?50-500 ?2 - 3 weeks ?100-5000 ?3 - 4 weeks ?500-10,000 ?4 - 5 weeks ?1000-50,000 ?5 - 6 weeks ?10,000-100,000 ?6 - 8 weeks ?15,000-200,000 ?2 - 3 months ? 10,000-100,000 ?Trophoblastic Disease ?>100,000 *In higher than expected hCG in females > age 40, a serum FSH >20 IU/L makes unlikely. Reece Delaney MD LAB - CHEMISTRY AMANDEEP RAO Performing Organization Address [facility] Co de Phone Number [facility] [address] [place] [address] * SARS-COV-2 (COVID-19) IN HOUSE (09/30/2020 10:20 PM CARE MANAGER CNA) COVID-19 PCR Not detected Not detected 10/01/2020 12:37 PM CARE MANAGER CNA [facility] Microbiology SPECIMEN FROM NASOPHARYNGEAL STRUCTURE / Unknown Collection / Unknown 09/30/2020 10:20 PM CARE MANAGER CNA 09/30/2020 10:30 PM CARE MANAGER CNA Narrative [facility] - 10/01/2020 12:37 PM CARE MANAGER CNA This nucleic acid amplification assay performance was validated by [facility]. This test has been authorized by the Food and Drug administration (FDA)under an Emergency??Use Authorization (EUA). This test has been validated in accordance with the FDA's guidance document Policy for Diagnostic Testing in Laboratories Certified to perform High Complexity Testing under CLIA prior to Emergency Use Authorization for Coronavirus Disease-2019 during the Public Health Emergency issued on December 28, 2019. FDA independent review of this validation is pending. This test is only authorized for the duration of time the declaration that circumstances exist justifying the authorization of emergency use of in vitro diagnostic tests for detection of SARS-CoV-2 virus and/or diagnosis of COVID-19 infection under section 564(b)(1) of the Act, 21 U.S.C 360bbb-3 (b)(1), unless the authorization is terminated or revoked sooner. Fact Sheets for this EUA assay are available upon request. Reece Delaney MD LAB - MICROBIOLOGY O RDERALUZ ELENA Performing Organization Address [facility] Co de Phone Number [facility] [address] [place] [address], [facility] [phone] * CT ABDOMEN W CONTRAST (09/30/2020 7:40 PM CARE MANAGER CNA) Anatomical Region Laterality Modality Abdomen Computed Tomogra phy 10/01/2020 7:29 AM CARE MANAGER CNA Impressions 10/01/2020 9:36 AM CARE MANAGER CNA Gallbladder wall thickening and hyperemia raises concern for acute cholecystitis. No CT evidence of cholelithiasis or choledocholithiasis. The preliminary results were discussed with Dr. Delaney by Dr. Parikh on 09/30/2020 at 2006 hours. Dictated by Aviva De Luna on 10/01/2020 8:02 AM I, Winnie Lobo, have personally reviewed the images and I agree with this report. *Reading Radiologist: Winnie Lobo on 10/01/2020 at 9:36 AM Narrative 10/01/2020 9:36 AM CARE MANAGER CNA INDICATION: 20-year-old female with abdominal pain x1 week, found to have elevated transaminases and evidence of acute cholecystitis at outside institution. COMPARISON: None available. TECHNIQUE: CT of the abdomen and pelvis with 92 mL of Isovue-300 intravenous contrast. Coronal and sagittal reformatted images were submitted. DOSE: CTDI: 3.55 mGy, DLP: 176.53 mGy-cm The reported CTDIvol (mGy) and DLP (mGy-cm) values are generated from scan acquisition factors based on 32 cm (body) or 16 cm (head) phantoms and may underestimate or overestimate the actual patient dose based on patient size and other factors. FINDINGS: Chest: Other than mild dependent atelectasis, the lung bases are clear. Liver: Normal liver size and attenuation. Gallbladder/Biliary: Inflammatory changes, including gallbladder wall edema/thickening with enhancement of the gallbladder wall are seen. There is borderline intrahepatic and extrahepatic biliary duct dilatation, with the common bile duct measuring up to 5 mm (series 4, image 65). No CT evidence of cholelithiasis or choledocholithiasis. Pancreas: Normal without peripancreatic fluid collection. Spleen: Normal attenuation without mass. Adrenal glands: Normal in morphology without mass lesion. : Normal appearance of the kidneys with symmetric parenchymal enhancement. Normal bladder. Uterus is grossly unremarkable. Ovaries are not well evaluated by CT. GI: No obstruction or abnormal bowel wall thickening. Moderate stool burden is seen within the rectum and sigmoid colon. Normal appendix. Vascular: The aorta and inferior vena cava are normal. Other: No free air or rim-enhancing fluid collection. Free fluid is noted within the pelvis. Bones: The bones are normal. Procedure Note Winnie Lobo MD - 10/01/2020 INDICATION: 20-year-old female with abdominal pain x1 week, found to have elevated transaminases and evidence of acute cholecystitis at outside institution. COMPARISON: None available. TECHNIQUE: CT of the abdomen and pelvis with 92 mL of Isovue-300 intravenous contrast. Coronal and sagittal reformatted images were submitted. DOSE: CTDI: 3.55 mGy, DLP: 176.53 mGy-cm The reported CTDIvol (mGy) and DLP (mGy-cm) values are generated from scan acquisition factors based on 32 cm (body) or 16 cm (head) phantoms and may underestimate or overestimate the actual patient dose based on patient size and other factors. FINDINGS: Chest: Other than mild dependent atelectasis, the lung bases are clear. Liver: Normal liver size and attenuation. Gallbladder/Biliary: Inflammatory changes, including gallbladder wall edema/thickening with enhancement of the gallbladder wall are seen. There is borderline intrahepatic and extrahepatic biliary duct dilatation, with the common bile duct measuring up to 5 mm (series 4, image 65). No CT evidence of cholelithiasis or choledocholithiasis. Pancreas: Normal without peripancreatic fluid collection. Spleen: Normal attenuation without mass. Adrenal glands: Normal in morphology without mass lesion. : Normal appearance of the kidneys with symmetric parenchymal enhancement. Normal bladder. Uterus is grossly unremarkable. Ovaries are not well evaluated by CT. GI: No obstruction or abnormal bowel wall thickening. Moderate stool burden is seen within the rectum and sigmoid colon. Normal appendix. Vascular: The aorta and inferior vena cava are normal. Other: No free air or rim-enhancing fluid collection. Free fluid is noted within the pelvis. Bones: The bones are normal. IMPRESSION Gallbladder wall thickening and hyperemia raises concern for acute cholecystitis. No CT evidence of cholelithiasis or choledocholithiasis. The preliminary results were discussed with Dr. Delaney by Dr. Parikh on 09/30/2020 at 2006 hours. Dictated by Aviva De Luna on 10/01/2020 8:02 AM I, Winnie Lobo, have personally reviewed the images and I agree with this report. *Reading Radiologist: Winnie Lobo on 10/01/2020 at 9:36 AM Elisa Estrada MD CT ORDERABLES * (ABNORMAL) TRIGLYCERIDES BLOOD (09/30/2020 6:35 PM CARE MANAGER CNA) Triglycerides 281(H) <150 mg/dL 09/30/2020 7:02 PM CARE MANAGER CNA [facility] Blood BLOOD SPECIMEN / Unknown Venipuncture / Unknown 09/30/2020 6:35 PM CARE MANAGER CNA 09/30/2020 6:40 PM CARE MANAGER CNA Elisa Estrada MD LAB - CHEMISTRY ORDJennifer RAO Performing Organization Address [facility]/ZIP Co de Phone Number [facility] [address] [place] [phone] * LIPASE BLOOD (09/30/2020 6:35 PM CARE MANAGER CNA) Lipase 37 10 - 220 U/L 09/30/2020 9:30 PM CARE MANAGER CNA [facility] Blood BLOOD SPECIMEN / Unknown Venipuncture / Unknown 09/30/2020 6:35 PM CARE MANAGER CNA 09/30/2020 6:40 PM CARE MANAGER CNA Adriel Polanco MD LAB - CHEMISTRY ORDE MAIRA Performing Organization Address [facility]/ZIP Co de Phone Number [facility] [address] [place] [phone] * CHOLESTEROL BLOOD (09/30/2020 6:35 PM CARE MANAGER CNA) Cholesterol 150 <200 mg/dL 09/30/2020 7:02 PM CARE MANAGER CNA [facility] Blood BLOOD SPECIMEN / Unknown Venipuncture / Unknown 09/30/2020 6:35 PM CARE MANAGER CNA 09/30/2020 6:40 PM CARE MANAGER CNA Narrative [facility] - 09/30/2020 7:02 PM CARE MANAGER CNA Cholesterol comment: <18 years old: <170 mg/dL Desirable 170-199 mg/dL Borderline High >200 mg/dL High >18 years old: <200mg/dL Desirable 230-239mg/dL Borderline High >240 mg/dL High Risk factor status for Coronary Artery Disease is necessary to place these lab findings in perspective. Note: This test is for fasting patients only. A non-fasting state may alter some of these results. Elisa Estrada MD LAB - CHEMISTRY AMANDEEP RAO [facility] Organization Address City/State/ZIP Co de Phone Number [facility] [address] [place] [address] * US ABDOMEN COMPLETE (02/06/2012 8:02 AM CDT) Anatomical Region Laterality Modality Abdomen Ultrasound 02/06/2012 8:22 AM CDT Impressions 02/06/2012 8:22 AM CDT Normal abdominal ultrasound. Narrative 02/06/2012 8:22 AM CDT EXAMINATION: Abdominal ultrasound dated ??Feb 06, 2012 08:02:54 AM. HISTORY: ??Abdominal pain FINDINGS: ??Multiple, real-time images of the abdomen are obtained. ??No prior examinations are available for comparison. Ultrasound examination shows a normal appearing liver and spleen. The gallbladder is normal. The common duct measures 1.0 mm in diameter, which is within normal limits. The right kidney measures 8.9 cm in length, and left kidneys measures 9.3 cm in length. ??Renal cortical echogenicity is normal. ??No hydronephrosis, masses, or stones are seen. ??The visualized portions of the pancreas are normal. ??The visualized portions of the great vessels are normal. No ascites is present. ??The urinary bladder is incompletely distended and grossly normal. ?? Procedure Note Tashi Amato - 02/06/2012 EXAMINATION: Abdominal ultrasound dated Feb 06, 2012 08:02:54 AM. HISTORY: Abdominal pain FINDINGS: Multiple, real-time images of the abdomen are obtained. No prior examinations are available for comparison. Ultrasound examination shows a normal appearing liver and spleen. The gallbladder is normal. The common duct measures 1.0 mm in diameter, which is within normal limits. The right kidney measures 8.9 cm in length, and left kidneys measures 9.3 cm in length. Renal cortical echogenicity is normal. No hydronephrosis, masses, or stones are seen. The visualized portions of the pancreas are normal. The visualized portions of the great vessels are normal. No ascites is present. The urinary bladder is incompletely distended and grossly normal. IMPRESSION Normal abdominal ultrasound. Signed On Paper Physician US ORDERABLES * URINALYSIS ROUTINE AUTO (01/03/2012 11:10 PM CARE MANAGER CNA) Color UA YELLOW [facility] Character UA CLEAR [facility] Specific [place] UA 1.020 1.003 - 1.030 [facility] pH UA 6.0 5.0 - 8.0 [facility] Protein UA NEGATIVE Negative [facility] Glucose UA NEGATIVE Negative gm/dl [facility] Ketone UA NEGATIVE Negative [facility] Blood UA NEGATIVE Negative [facility] Bilirubin UA NEGATIVE Negative [facility] WBC UA 1-4 /HPF [facility] RBC UA rare /HPF [facility] Epithelial Cell UA 0-1 /HPF [facility] Bacteria UA trace [facility] Leukocyte UA NEGATIVE [facility] Nitrite UA NEGATIVE [facility] Urobilinogen UA 0.2 <=1.0 EU/dl [facility] Urine specimen (specimen) URINE SPECIMEN OBTAINED BY CLEAN CATCH PROCEDURE / Unknown 01/03/2012 11:10 PM CARE MANAGER CNA 01/03/2012 11:18 PM CARE MANAGER CNA Keyla Shirley MD LAB - URINALYSIS ORD ERABLES Performing Organization Address City/State/[facility] Co de Phone Number [facility] [address] [place] [address] * (ABNORMAL) COMPREHENSIVE METABOLIC PANEL (01/03/2012 10:53 PM CARE MANAGER CNA) Sodium 144 137 - 145 mmol/L [facility] Potassium 4.5 3.5 - 5.1 mmol/L [facility] Chloride 107 98 - 107 mmol/L [facility] CO2 23.6 18 - 27 mmol/L [facility] Glucose 92 70 - 106 mg/dl [facility] BUN 14.6 7 - 18 mg/dl [facility] Calcium 9.9 8.8 - 10.1 mg/dl [facility] Bilirubin Total 0.4(L) 0.6 - 1.4 mg/dl [facility] Protein Total 7.6 6.2 - 8.1 gm/dl [facility] Albumin 4.6 3.7 - 5.6 gm/dl [facility] ALT 24 10 - 35 Units/L [facility] AST 34 15 - 40 Units/L [facility] Alkaline Phosphatase 244 175 - 420 Units/L [facility] Creatinine 0.45 0.22 - 0.59 mg/dl [facility] Blood specimen (specimen) BLOOD SPECIMEN / Unknown 01/03/2012 10:53 PM CARE MANAGER CNA 01/03/2012 10:57 PM CARE MANAGER CNA Keyla Shirley MD LAB - CHEMISTRY AMANDEEP RAO Performing Organization Address City/State/[facility] Co de Phone Number [facility] [address] [place] [address] Care Teams [employer] Miller Relationship Specialty Start Date End Date Lowell Patel MD [address] [place] [address] PCP - General 10/14/20 Lowell Patel MD [address] [place] [address] 10/14/20
[2024-11-30 12:47] LABS: Basophils Percent Auto 0.3 % (0.2-1.2); Eosinophils Absolute Auto 0.1 K/mm3 (0-0.3); Eosinophils Percent Auto 0.6 % (0-4.4); Hematocrit 33.1 % (37.0-47.0); Hemoglobin 10.7 g/dL (12.0-15.0); Immature Granulocyte Absolute 0.05 K/mm3 (0.00-0.031); Immature Granulocyte Percent A 0.5 % (0-0.5); Lymphocytes Absolute Auto 2.13 K/mm3 (0.9-3.2); Lymphocytes Percent Auto 21.6 % (18.3-44.2); Mean Corpuscular HGB Conc 32.3 g/dl (32-36); Mean Corpuscular Hemoglobin 28.4 pg (26-34); Mean Corpuscular Volume 87.8 fl (80-100); Mean Platelet Volume 12.4 fl (7.4-10.4); Monocytes Absolute Auto 0.5 K/mm3 (0.1-0.6); Monocytes Percent Auto 5.4 % (2.6-8.5); Neutrophils Percent Auto 71.6 % (45.5-73.1); Platelet Count Result 231 k/mm3 (150-375); Red Blood Count 3.77 M/mm3 (4.2-5.4); Red Cell Distribution Width 13.4 % (11.5-14.5); White Blood Count 9.8 K/mm3 (4.5-10.0)
[2024-11-30 12:58] LABS: Glucose 1 Hour PP 50gm Dose 128 mg/dL
[2024-11-30 13:38] LABS: HIV 1/2 Ab P24 Ag Result Negative (Negative)
[2024-11-30 15:44] LABS: Rapid Plasma Reagin Non-Reactive (NonReactive)
== END 2024-11-30 11:16 | disposition home or self-care (01) ==
LOC: ANHLAB 11:16
PROVIDERS: PCP Family Medicine; Visit Provider Obstetrics & Gynecology
DX: Z34.92 Encounter for supervision of normal pregnancy, unspecified, second trimester (principal); Z3A.24 24 weeks gestation of pregnancy
CPT/HCPCS: 36415; 82947; 85025; 86592; 86703; G0432

== ENCOUNTER 2025-01-13 15:59 | Outpatient (RCR) | payer OTHER, MEDICAID, SELFPAY ==
--- NOTE | 2025-01-06 14:33 | PC.NURSE ---
Dr Moreno notified of prolonged decel, orders to get BPP and put back on the monitor after BPP. If reactive after BPP may discharged home.
[2025-01-06 15:23] VITALS: BP 108/70; PULSE 89
[2025-01-09 16:23] VITALS: BP 119/77; PULSE 89
--- NOTE | ~2025-01-13 | US_ITS ---
LIMITED OBSTETRIC ULTRASOUND/BIOPHYSICAL PROFILE Ordering provider: Robert Moreno MD History: . SGA . Comparison: None. FINDINGS: MATERNAL CERVIX: Not visualized. cm which is normal (normal is equal to or greater than 3.0 cm). PRESENTATION: Vertex. Longitudinal lie. PLACENTAL LOCATION: Fundal posterior. No previa. HEART RATE: 149 bpm (normal is between 110 to 160 bpm). AMNIOTIC FLUID INDEX: 11.5 cm. 5th percentile is 7 cm. 95th percentile is 24.9 cm. Largest vertical pocket is 4.7 cm. normal (MANJIT between 5-25 cm in from 20-35 weeks gestation is considered normal). OTHER: Maternal ovaries not visualized. SCORE: breathing movements: 2 movements: 2 tone: 2 Amniotic fluid volume: 2 Total: 8 IMPRESSION: Normal biophysical profile. Reviewed, dictated and finalized at location A. IMPRESSION: Normal biophysical profile.
--- NOTE | ~2025-01-13 | US_ITS ---
EXAMINATION: US OB BPP wo non-stress DATE: 01/13/2025 18:01 INDICATION: Small for gestational age during third trimester . TECHNIQUE: Real-time pelvic ultrasound was performed. The interpreting radiologist was not present fo r the study. COMPARISON: None. FINDINGS: There is a single living fetus in vertex presentation. The placenta is fundal. heart rate is 1 41 beats per minute (bpm). Amniotic fluid volume is subjectively normal with normal deepest vertical pocket measurement of 5.1 cm. Biophysical profile performed by the technologist: breathing (30 sec sustained breathing in 30 minutes): 2 out of 2 movement (3 gross body movements in 30 minutes): 2 out of 2 tone (one episode of fvywemp-oisfaqqyu-lnzbawt limb movement): 2 out of 2 Amniotic fluid pocket (2 cm): 2 out of 2 Total score: 8 out of 8 IMPRESSION: 1. Single living fetus in vertex presentation with heart rate of 141 bpm. 2. Biophysical profile 8 out of 8. Reviewed, dictated and finalized at location A.
[2025-01-13 18:22] VITALS: BP 116/70; PULSE 83
== END 2025-02-19 17:24 | disposition home or self-care (01) ==
LOC: ANHOBOP 15:59
PROVIDERS: Visit Provider Obstetrics & Gynecology
DX: O26.843 Uterine size-date discrepancy, third trimester (principal)
CPT/HCPCS: 59025; 76819

== ENCOUNTER 2025-01-15 11:41 | Inpatient (IN) | payer OTHER, MEDICAID, SELFPAY ==
[2025-01-15] VITALS (104 sets, daily range): BP systolic 97–139; BP diastolic 57–118; PULSE 77–117; RESP 16; TEMP 36.4–37; O2SAT 96–100; BMI 25.8
--- NOTE | 2025-01-15 12:27 | WPDHPUPDATE1 ---
History and Physical Update Update Date/Time: 01/15/25 12:27 24 yo who presents at 37w1d with SROM. History and Physical has been reviewed, including an updated exam of the patient. There are NO changes in the patient's condition. Risks, benefits, and alternatives have been discussed and questions answered. Patient agrees to proceed with procedure. A/P: Admit to L&D Routine admission orders Rh positive GBS negative Will augment with Pitocin Continuous EFM
--- NOTE | 2025-01-15 12:47 | LDADM ---
This patient, Fina Steele, was admitted to Labor/Delivery/Recovery 103 on 01/15/25 at 1118. Plans for labor, pain management and were discussed with patient. Patient/family oriented to hospital policies and general routines including ID bracelet, bed and alarms, visiting hours, pain management, procedures, bathroom and other care routines, personal items, smoking policy, room service/diet and guest tray routines, security routines, and visiting hours. Patient/Family are encouraged to report perceived risks to care and to ask questions if they do not understand what they are told or what they should do. See OBIX for further documentation.
--- NOTE | 2025-01-15 13:02 | LDADM ---
This patient, Fina Steele, was admitted to Labor/Delivery/Recovery 103 on 01/15/25 at 11:18. Plans for labor, pain management and were discussed with patient. Patient/family oriented to hospital policies and general routines including ID bracelet, bed and alarms, visiting hours, pain management, procedures, bathroom and other care routines, personal items, smoking policy, room service/diet and guest tray routines, infant security routines, and visiting hours. Patient/Family are encouraged to report perceived risks to care and to ask questions if they do not understand what they are told or what they should do. See OBIX for further documentation.
[2025-01-15 13:09] LABS: Basophils Percent Auto 0.3 % (0.2-1.2); Eosinophils Absolute Auto 0.1 K/mm3 (0-0.3); Eosinophils Percent Auto 0.6 % (0-4.4); Hematocrit 33.1 % (37.0-47.0); Hemoglobin 11.2 g/dL (12.0-15.0); Immature Granulocyte Absolute 0.05 K/mm3 (0.00-0.031); Immature Granulocyte Percent A 0.4 % (0-0.5); Immature Platelet Fraction Pct 26.5 % (0.9-11.2); Lymphocytes Absolute Auto 2.28 K/mm3 (0.9-3.2); Lymphocytes Percent Auto 17.8 % (18.3-44.2); Mean Corpuscular HGB Conc 33.8 g/dl (32-36); Mean Corpuscular Hemoglobin 28.6 pg (26-34); Mean Corpuscular Volume 84.4 fl (80-100); Mean Platelet Volume 14.4 fl (7.4-10.4); Monocytes Absolute Auto 0.7 K/mm3 (0.1-0.6); Monocytes Percent Auto 5.6 % (2.6-8.5); Neutrophils Absolute Auto 9.6 K/mm3 (1.3-6.7); Neutrophils Percent Auto 75.3 % (45.5-73.1); Platelet Count Result 164 k/mm3 (150-375); Red Blood Count 3.92 M/mm3 (4.2-5.4); Red Cell Distribution Width 14.8 % (11.5-14.5); White Blood Count 12.8 K/mm3 (4.5-10.0)
[2025-01-15] MEDS: OXYTOCIN 30 UNITS/NS 500 ML 30 UNITS/500 ML BAG IV CONT (13:27)
[2025-01-15] MEDS: LACTATED RINGERS 1,000 ML 125 ML IV CONT ×2 (13:28→16:12)
--- OUTSIDE RECORDS SUMMARY | 2025-01-15 13:30 | XMS_ITS | Clinical Summary ---
Author Organization [facility] Address [address] [place] [address] Care Team Providers Care Chief Safety Officer Name Role Phone Lowell Patel MD Primary Care Provider [phone] Lowell Patel MD Unavailable [phone] Source Comments [facility],non-owned Affiliates and Associated Physician Practices is amultiple site organization consisting of ambulatory clinics and hospital sitesin [place], [place], [place] and [place]. This disclosure is being madepursuant to the Care Everywhere program and may not contain all information available regarding this patient. Last updated 18.[facility] Allergies Active Allergy Reactions Criticality Noted Date [...] 11/11/2020 Assessment & Plan (11/11/2020 4:48 PM ELECTRIC DISTRIBUTION ENGINEER): Fina was seen via telemedicine today in [...] 10/28/2020 Assessment & Plan (10/28/2020 2:38 PM ELECTRIC DISTRIBUTION ENGINEER): Fina is here today for a postoperative follow up from her cholecystectomy Operative Note: Date: October 01, 2020 Preoperative Diagnosis: Acute cholecystitis Post Operative Diagnosis: Acute on chronic cholecystitis Procedure Performed: Laparoscopic cholecystectomy Pathology reviewed with [...] Comments Blood Pressure 108/61 10/02/2020 8:11 AM ELECTRIC DISTRIBUTION ENGINEER Pulse 70 10/02/2020 8:11 AM ELECTRIC DISTRIBUTION ENGINEER Temperature 36.1 C (97 F) 10/02/2020 8:11 AM ELECTRIC DISTRIBUTION ENGINEER Respiratory Rate 16 10/02/2020 8:11 AM ELECTRIC DISTRIBUTION ENGINEER Oxygen Saturation 98% 10/02/2020 8:11 AM ELECTRIC DISTRIBUTION ENGINEER Inhaled Oxygen Concentration 100% 10/01/2020 6 :15 PM ELECTRIC DISTRIBUTION ENGINEER Weight 41.1 kg (90 lb 9.7 oz) 11/02/2020 12:53 P M ELECTRIC DISTRIBUTION ENGINEER Height 149.3 cm (4' 10.78 ) 09/30/2020 10:40 PM ELECTRIC DISTRIBUTION ENGINEER Body Mass Index 18.44 09/30/2020 10:40 PM ELECTRIC DISTRIBUTION ENGINEER Plan of Treatment Health Maintenance Due Date Last Done Comments PAP SMEAR 2002 HIV SCREENING 2017 HPV VACCINE (1 - 3-dose series) 2017 CHLAMYDIA/GONORRHEA SCREENING 2018 MENINGOCOCCAL (Group B) VACC INE SHARED DECISION-MAKING (1 of 2 - Standard) 2018 HEPATITIS [...] patient's age to complete this topic MENINGOCOCCAL GROUPS A/C/Y/W VACCINE Aged Out No longer eligible b ased on patient's age to complete this topic PNEUMOCOCCAL VACCINE Aged Out No long er eligible based on patient's age to complete this topic Advance Directives * Full Code (Latest Code Status on File) Date Activated Date Inactivated Comments 09/30/2020 9:48 PM 10/02/2020 11:12 AM Care Teams Chief Safety Officer Relationship Specialty Start Date End Date Lowell Patel MD [address] [place] [id number] PCP - General 10/14/20 Lowell Patel MD [address] [place] [phone] 10/14/20
[2025-01-15 14:08] LABS: Syphilis IgG/IgM Antibody Negative (Negative)
[2025-01-15 14:22] LABS: HIV 1/2 Ab P24 Ag Result Negative (Negative)
[2025-01-15] MEDS: fentaNYL CITRATE INJ (*CRX) 100 MCG/2 ML VIAL IV PUSH (15:09)
--- NOTE | 2025-01-15 19:37 | P.PCNOB_ITS ---
OB - Vaginal Delivery Note Procedure Delivery date: 01/15/25 Induction method: None Delivery augmentation: Pitocin Delivery monitor: External FHT and External Uterine Route of delivery: Episiotomy description: None Laceration Description: Labial (bilateral) Delivery repair: vicryl Specimen: Yes (placenta) Quantitative Blood Loss (ml): 100 Anesthesia type: Epidural Disposition: Floor Complications: No immediate complications Narrative: Patient pushed for a spontaneous vaginal delivery. A nuchal cord was noted on the perineum and delivered through. The fetus was delivered atraumatically and p laced on the maternal abdomen. The cord was clamped and cut after 1 minute of life. The cord was double clamped and cut and a segment of cord was collected for cord gases. Cord blood was collected for blood type and Coomb's testing. The placenta delivered spontaneously and was noted to be intact. The perineum was inspected and noted to be intact. There were bilateral labial lacerations that were made hemostatic with figure of eight sutures of 3-0 vicryl. The uterus was firm and good hemostasis was noted [place] Baby Date of : 01/15/25 Time of : 19:27 Gestational Age by Date: 37 Infant gender: Male presentation: vertex position: Right Occiput Anterior Placenta delivery description: Spontaneous Cord Vessel Description: 3 Vessels and Nuchal Cord score one minute: 8 score five minutes: 9
[2025-01-15] MEDS: OXYTOCIN 30 UNITS/NS 500 ML 30 UNITS/500 ML BAG 125 UNITS IV CONT (20:01)
[2025-01-15] MEDS: BENZOCAINE 20% AER SPR (*SP) 56 GM CAN 1 SPRAY TOPICAL (20:32)
[2025-01-15] MEDS: WITCH HAZEL 40 PADS 1 PAD TOPICAL (20:32)
[2025-01-15] MEDS: ACETAMINOPHEN 325 MG TABLET 650 MG PO (20:52)
[2025-01-16 02:05] VITALS: BP 122/85; PULSE 95; RESP 16; TEMP 36.4; O2SAT 98
[2025-01-16] MEDS: IBUPROFEN 600 MG TABLET PO ×3 (02:06→21:17)
[2025-01-16 05:04] LABS: Hematocrit 30.8 % (37.0-47.0); Hemoglobin 9.1 g/dL (12.0-15.0)
[2025-01-16 08:30] VITALS: BP 101/63; PULSE 73; RESP 18; TEMP 36.3; O2SAT 100
[2025-01-16] MEDS: POLYSACCHARIDE IRON COMPLEX 150 MG CAPSULE PO ×2 (08:55→16:32)
[2025-01-16] MEDS: DOCUSATE SODIUM 100 MG CAPSULE PO ×2 (08:55→16:32)
--- NOTE | 2025-01-16 09:40 | P.PNOB_ITS ---
OB - PN: Subj Subjective Date/time seen: 01/16/25 09:40 S: No complaints of significant pain or discomfort. Bleeding. Diet ambulation without issue. O: VSS afebrile Abdomen: Soft nondistended nontender Labs: Noted Assessment: 1. day 1 status post vaginal delivery, doing well. Plan: 1. Routine care OB - PN: Obj Data Labs 01/16/25 04:05 Labs: Laboratory Results - last 24 hr 01/15/25 01/16/25 12:58 04:05 WBC 12.8 H RBC 3.92 L Hgb 11.2 L 9.1 L Hct 33.1 L 30.8 L MCV 84.4 MCH 28.6 MCHC 33.8 RDW 14.8 H Plt Count 164 MPV 14.4 H Immature Gran % (Auto) 0.4 Neut % (Auto) 75.3 H Lymph % (Auto) 17.8 L [place] % (Auto) 5.6 Eos % (Auto) 0.6 Baso % (Auto) 0.3 Lymph # (Auto) 2.28 [place] # (Auto) 0.7 H Eos # (Auto) 0.1 Baso # (Auto) 0.0 Abs Immat Gran (auto) 0.05 H Absolute Neuts (auto) 9.6 H Absolute Nucleated RBC 0.000 Nucleated RBC % 0.0 % Immature Plt Fraction 26.5 H Syphilis IgG/IgM Ab Negative HIV 1&2 Ab/P24 Ag 4thGn Negative Blood Type O Positive Antibody Screen Negative OB - PN A/P Time Spent With Patient Time: Total time spent is greater than 50% in coordination of care (as documented) at patient's floor/unit and/or counseling patient:
[2025-01-16 12:54] VITALS: BP 113/79; PULSE 89; RESP 16; TEMP 36.6; O2SAT 99
--- NOTE | 2025-01-16 13:12 | WPDANLDPN2 ---
Anes-Prog Note L&D Date/Time: 01/16/25 13:12 Neuro status: Neuro function grossly intact. Cardiovascular status: normal Respiratory status: normal Airway patency: baseline Mental status: baseline Post-Op hydration status: normal Vital Signs: Last Vital Signs Temp 36.6 C 01/16/25 12:54 Pulse 89 01/16/25 12:54 Resp 16 01/16/25 12:54 BP 113/79 01/16/25 12:54 Pulse Ox 99 01/16/25 12:54 O2 Del Method Room Air 01/15/25 13:14 Pain score (VAS): 0 I/O: Intake & Output 01/15/25 01/16/25 01/16/25 23:59 07:59 15:59 Intake Total 1500 Output Total 400 Balance 1100 Patient feedback: Patient satisfied with anesthetic care.
[2025-01-16 23:00] VITALS: BP 114/78; PULSE 73; RESP 16; TEMP 36.6; O2SAT 98
--- NOTE | 2025-01-17 07:13 | PM.OBDSVD ---
DS: Admitting Diagnosis Discharge Date 01/17/25 Admitting Diagnosis SROM DS: Discharge Diagnosis Discharge Diagnosis (1) Normal vaginal delivery: Code(s): O80 - Encounter for full-term uncomplicated delivery Status: Acute OB - DS: Summary OB Procedures : Ultrasound OB Procedures Intrapartum: Spontaneous Vag Delivery OB Procedures: : None Peripartum Data Infant Delivery Method: Natural Vaginal Laceration Description: Labial (bilateral) Episiotomy description: None complications: none [place] 1: Gender: Male Status at Discharge Functional status at discharge: independent ambulation Overall status at discharge: patient is back to baseline Time Spent with Patient Time attestation: Total time spent providing and/or coordinating discharge services: Exam Const: General: cooperative, healthy appearing, comfortable and no acute distress Orientation/consciousness: patient oriented x3 Resp: Effort & Inspection: normal respiratory effort Auscultation: clear to auscultation bilaterally Cardio: Rate: regular rate GI: Inspection: non-distended GI Palp: No abdominal tenderness and Yes Soft to palpation Auscultation: normal bowel sounds : Other: fundus firm Skin: General skin exam: normal color Neuro: General: patient oriented x3 Extrem: General: normal to inspection Psych: Appearance: grossly normal Affect: normal affect Attitude: cooperative Discharge Plan Discharge Attending physician on discharge: Margo Jean Discharging Clinician: Margo Jean Anticipated Discharge Date/Time: 01/17/25 19:30 Patient Disposition: Home, Self-Care Activity: may shower Diet: regular Patient Instructions: Vaginal Delivery (DC) Patient Language: Icelandic Stand Alone Forms: General Discharge Information Follow-up/Referrals: Garfield Vieira MD [Physician] - 4 Weeks Discharge Medications: New acetaminophen 325 mg Tablet 650 mg PO Q6H PRN (Reason: Mild Pain (1-3) Or Headache) Qty: 60 0RF polysaccharide iron complex 150 mg iron Capsule 150 mg PO DAILY Qty: 90 0RF docusate sodium 100 mg Capsule 100 mg PO BID PRN (Reason: Constipation) Qty: 30 0RF ibuprofen 600 mg Tablet 600 mg PO Q6H PRN (Reason: Cramping) Qty: 40 0RF No Action Classic 28 mg iron- 800 mcg tablet 1 tablet PO DAILY Date of admission: 01/15/25 11:41 Primary Care Provider: UNKNOWN,DOCTOR Admitting Provider: Robert Moreno Attending physician on admission: Robert Moreno Condition: Stable
[2025-01-17 08:05] VITALS: BP 103/65; PULSE 71; RESP 16; TEMP 36.8; O2SAT 98
[2025-01-17] MEDS: DOCUSATE SODIUM 100 MG CAPSULE PO (10:48)
[2025-01-17] MEDS: POLYSACCHARIDE IRON COMPLEX 150 MG CAPSULE PO (10:48)
--- NOTE | 2025-01-17 11:20 | PC.NURSE ---
Patient viewed the discharge video Mother & Baby Care, The First Two Weeks . Patient was given the opportunity and encouraged to ask questions. Patient verbalized understanding of information shared and has been given the mother/baby guide for home reference.
[2025-01-18 08:12] VITALS: BP 118/85; PULSE 76; RESP 18; TEMP 36.6; O2SAT 100
== END 2025-01-17 12:25 | disposition home or self-care (01) | DRG 807 ==
LOC: ANHLDR 11:42 → ANHOB2 21:49
PROVIDERS: Student in an Organized Health Care Education/Training Program; Admitting Provider Obstetrics & Gynecology; Visit Provider Obstetrics & Gynecology
DX: O69.81X0 Labor and delivery complicated by cord around neck, without compression, not applicable or unspecified (principal); Z37.0 Single live birth; O70.0 First degree perineal laceration during delivery; Z3A.37 37 weeks gestation of pregnancy; Z67.91 Unspecified blood type, Rh negative
CPT/HCPCS: 36415; 85014; 85018; 85025; 85055; 86593; 86703; 86850; 86900; 86901; A9270; G0432; J2590; J2795; J3010; J7120